=== PATIENT | female | born 1990 | race Caucasian/White ===

== ENCOUNTER 2019-04-27 08:13 | Emergency (ER) | payer OTHER, SELFPAY ==
--- NOTE | 2019-04-27 08:13 | ED_ITS ---
I attest that this documentation has been prepared under the direction and in the presence of Dona Bain Scribe 04/27/19;08:15 HPI - General Adult General Chief complaint: Cardiac Arrest/CPR Stated complaint: CARDIAC ARREST Time Seen by Provider: 04/27/19 08:14 Source: EMS and RN notes reviewed Mode of arrival: EMS Limitations: clinical condition History of Present Illness HPI narrative: Pt is a 28 y/o female who presents to the ED, via EMS, with c/o cardiac arrest. EMS reports the pt was found on the floor by the inmates, but no one witnessed the pt prior to the fall. EMS reports the pt had no pulse upon their arrival to the scene. EMS reports performing CPR upon arrival. They state the pt was in V fib prior to ED arrival. They report administering epinephrine u deng arrival to the ED. A complete HPI is unobtainable due to the pt's clinical condition. MD complaint: Cardiac Arrest Onset (ago): unknown Radiation: non-radiation Pain Consistency: constant Relieving factors: none Exacerbating factors: none Related Data Allergies Allergy/AdvReac Type Severity Reaction Status Date / Time No Known Allergies Allergy Unverified 10/09/17 09:30 Review of Systems Review of Systems: Narrative: A complete ROS is unobtainable due to the pt's clinical condition. PMFSH Past Medical History Medical History (Updated 04/27/19 @ 10:40 by David Trevino MD) Depression Insomnia Surgical History Surgical History (Updated 04/27/19 @ 08:30 by Dona Gould) Hx of tonsillectomy Social History Social History (Updated 04/27/19 @ 08:30 by Dona Gould) Smoking status: Former smoker Exam Const: Nutritional Appearance: thin Other: Unresponsive HENMT: Other: ET tube in place. Eyes: Other: Pupils fixed and dilated Resp: Other: No respiratory effort. Bilateral breath sounds with bagging Cardio: Other: No central or peripheral pulses GI: GI Palp: Yes Soft to palpation Neuro: Other: Unresponsive Extrem: Other: cool to touch Medical Decision Making MDM Narrative Medical decision making narrative: She has been pulseless with no consistent rhythm. She has shown no response to treatment. She was pronounced Differential Diagnosis Differential Diagnosis: hypo glycemia, hypovolemia, upper GI bleed, cardiac arrest, other Critical Care Time Critical Care Time Critical Care Time: Yes Total Critical Care Time: 30 Discharge Plan Discharge Clinical Impression: Cardiac arrest Patient Disposition: Condition: Interventions: Discharge Disposition Last Done: 04/27/19 08:30 Follow-up/Referrals: UNKNOWN,DOCTOR [Primary Care Provider] - I personally performed the services described in this documentation. All medical record entries made by the scribe were at my direction and in my presence. I have reviewed the chart and discharge instructions and agree that the record reflects my personal performance and is accurate and complete. David Trevino MD 04/27/19;1038
[2019-04-27 08:30] VITALS: BP 0/0; PULSE 0; RESP 0; O2SAT 0
== END 2019-04-27 11:18 | disposition expired ==
PROVIDERS: Emergency Provider Emergency Medicine
DX: I46.9 Cardiac arrest, cause unspecified (principal)
CPT/HCPCS: 92950; 99285; J2310